=== PATIENT | female | born 1985 | race Caucasian/White ===

== ENCOUNTER 2017-12-14 10:43 | Emergency (ER) | payer OTHER ==
[2017-12-14 11:04] VITALS: BP 98/66
--- NOTE | 2017-12-14 11:30 | UC ---
Dental HPI - HPI Summary HPI Summary: This is zahraa Silverio documenting for attending Eros Casey MD. This patient is a 32 year old F presenting to [facility] with a chief complaint of facial abscess in the right lower jaw that began this morning. Pt has had all her teeth pulled except for one in the back right lower jaw that is broken and the dentures are irritating. Pt has taken ibuprofen with relief. The patient rates the pain 5/10 in severity. Patient reports dental pain. Patient denies fever. - History of Current Complaint Chief Complaint: UCDentalProblem Stated Complaint: DENTAL PAIN Time Seen by Provider: 12/14/17 11:20 Hx Obtained From: Patient Hx Last Menstrual Period: depo Onset/Duration: Lasting Hours, Still Present Severity: Moderate Pain Intensity: 5 Pain Scale Used: 0-10 Numeric Alleviating Factor(s): OTC Meds Related History: Previous Dental Care on Same Tooth - Allergies/Home Medications Allergies/Adverse Reactions: Allergies Allergy/AdvReac Type Severity Reaction Status Date / Time amoxicillin Allergy Hives Verified 12/14/17 11:04 PMH/Surg Hx/FS Hx/Imm Hx Cardiovascular History: Cardiac Disease - murmur Other History Of: Negative For: Anticoagulant Therapy - Surgical History Surgical History: Yes Surgery Procedure, Year, and Place: Tonsillectomy - Family History Known Family History: Positive: Hypertension Negative: Seizure Disorder - Social History Alcohol Use: None Substance Use Type: None Smoking Status (MU): Current Every Day Smoker Amount Used/How Often: ppd - Immunization History Most Recent Influenza Vaccination: never Most Recent Tetanus Shot: up to date Review of Systems Constitutional: Negative - fever Skin: Other - facial abscess ENT: Dental Pain All Other Systems Reviewed And Are Negative: Yes Physical Exam - Summary Physical Exam Summary: General: well-appearing, no pain distress Skin: warm, color reflects adequate perfusion, dry Head: normal Eyes: EOMI, GUS ENT: Severe dental decay in the right lower molars with gingival swelling Neck: supple, nontender Respiratory: CTA, breath sounds present Cardiovascular: RRR Abdomen: soft, nontender Bowel: present Musculoskeletal: normal, strength/ROM intact Neurological: sensory/motor intact, A&O x3 Psychological: affect/mood appropriate Triage Information Reviewed: Yes Vital Signs: Initial Vital Signs Temp 97.6 F 12/14/17 11:01 Pulse 83 12/14/17 11:01 Resp 16 12/14/17 11:01 BP 98/66 12/14/17 11:01 Pulse Ox 98 12/14/17 11:01 Vital Signs Reviewed: Yes Dental Complaint Course/Dx - Differential Dx/Diagnosis Provider Diagnoses: DENTAL PAIN Discharge - Sign-Out/Discharge Documenting (check all that apply): Patient Departure - Discharge Plan Condition: Stable Disposition: HOME Prescriptions: Clindamycin Cap(NF) [Clindamycin Cap 300 mg Cap(NF)] 300 mg PO Q6H #40 cap Patient Education Materials: Toothache (ED) Referrals: Refugio Bustillos MD [Primary Care Provider] - Additional Instructions: FOLLOW UP WITH YOUR DENTIST. GET RECHECKED FOR ANY WORSENING OF YOUR CONDITION OR QUESTIONS OR CONCERNS. - Billing Disposition and Condition Condition: STABLE Disposition: Home Attestation Statement Scribe Attestation: This is zahraa Silverio documenting for attending Eros Casey MD. User Type: Provider with Scribe Provider Attestation: The documentation recorded by the scribe accurately reflects the service I personally performed and the decisions made by me.
== END 2017-12-14 11:40 | disposition home or self-care (01) ==
LOC: UCEAST 10:43
DX: K08.89 Other specified disorders of teeth and supporting structures (principal); Z88.0 Allergy status to penicillin; F17.210 Nicotine dependence, cigarettes, uncomplicated
CPT/HCPCS: 99212; G0463

== ENCOUNTER 2018-08-10 09:57 | Emergency (ER) | payer OTHER ==
--- OUTSIDE RECORDS SUMMARY | 2018-08-10 10:03 | XMS REPORT | Continuity of Care Document ---
:1985 Author Organization [facility] Address [address], [place] [id number] Phone Care Team Providers Name Role Phone Coral Higuera NP Unavailable Unavailable Allergies, Adverse Reactions, Alerts Substance Reaction Status AMOXICILLIN TRIHYDRATE Hives/Skin Rash Active Medications Medication Instructions Dosage Effective Dates Status Comments (start - stop) Depo-Provera 150 mg/mL IM Q 11-13 weeks - Active intramuscular suspension Problems Condition Effective Dates (start - Clinical Status Comments stop) Body mass index (BMI) 32.0-32.9, - adult Encounter for surveillance of injectable contraceptive Human immunodeficiency virus [HIV] - counseling Encounter for surveillance of injectable contraceptive Encounter for test, result negative Human immunodeficiency virus [HIV] - counseling Encounter for surveillance of injectable contraceptive Encounter for test, result negative Human immunodeficiency virus [HIV] - counseling Encounter for surveillance of injectable contraceptive Encounter for surveillance of injectable contraceptive Encounter for surveillance of injectable contraceptive Encounter for surveillance of injectable contraceptive Encounter for test, result negative Encounter for surveillance of injectable contraceptive Encounter for surveillance of injectable contraceptive Encounter for surveillance of other contraceptives Encounter for surveillance of injectable contraceptive Encounter for surveillance of injectable contraceptive BCM Other, Surveillance BCM Other, Surveillance BCM Other, Surveillance BCM Other, Surveillance BCM Other, Surveillance Procedures Procedure Date INJECTION OR LAB ONLY VISIT EST INJECTION DEPO/CEFTRIAXONE PREVENTIVE COUNSELING, Under 8 Minutes DEPO Results Test Name Date and Time Measure Units Reference Range Abnormal Flag Status Comments No information Advance Directives Directive Yes / No Effective Date File Name No information Encounters Encounter Practice Location Reason(s) Diagnoses Date Provider Providers Description For Visit Copied on Encounter [facility] Encounter for Kalen [facility] [place] surveillance of Coral. 620 Provider: Southern injectable [address], [place] Finger contraceptiveHum [place], [place], Kalen J, [facility], [address] [place] [id number], [place]. [address] immunodeficiency tel:[phone] [address], St, [place], virus [HIV] [address] [place], [place], [address]. [id number], tel:[phone] [place] [phone] tel:[phone] [facility] Encounter for Kalen [facility] [place] [facility] surveillance of Coral. 620 Provider: Southern injectable [address], Coral Finger contraceptiveEnc [place], [place], Kalen J, [facility], [address] [place] [address], [place]. [address] test, tel:[phone] [address], St, [place], result [address] [place], [place], [place], [address]. [id number], immunodeficiency tel:[phone] [place] virus [HIV] [id number] tel:[phone] counseling sulting [phone] Provider: [facility]URSE [facility] Encounter for Sep-0 [place] Referring Parenthood [place] [facility] surveillance of Alanna. [address] W Provider: Southern injectable [address], Alanna Finger contraceptiveEnc [place], [place], Kornblum [facility], [address] [place] [address]. M, [address] test, tel:[phone] [address], St, [place], result negative [address] [place], [place], [address]. [id number], tel:[phone] [place] [phone] tel:[phone] sulting [phone] Provider: [facility]SE [place] [facility] Human Aug-2 White Kristan. [facility] [address] Provider: Southern virus [HIV] [address] St, [place], [place], [address], White, [address], [address] for [place]. [address] [place] surveillance of St, St, [place], injectable [place], [place], [place], [address]. [id number], [place] tel:[phone] [facility] Encounter for Francia Rushing. Referring Parenthood [place] [facility] surveillance of [address] Provider: Southern injectable [address], [place], [place], [address], [place], [address], [address] [place], St, [place], [place], [place], [id number], [address].Cons [place] ulting tel:[phone] Provider: [id number] [facility] Encounter for Francia Rushing. Referring Parenthood [place] [facility] [place] surveillance of [address] Provider: Southern injectable [address], [place], [place], [address], [place], [address], [address] [place]. [address], St, [place], [place], [place], [id number], [address].Cons [place] ulting tel:[phone] Provider: [id number] [facility] Encounter for Terryidis Referring Parenthood [place] [facility] [place] surveillance of Fay. [address] W Provider: Southern injectable [address], Sole Finger contraceptiveEnc [place], [place], Tim Bob, 620 [place] [address]. [address] test, tel:[phone], St, [place], result negative [address] [place], [place], [address]. [id number], tel:[phone] [place] [phone] tel:[phone] sulting [phone] Provider: [facility]SE [facility]. [facility] [address] Provider: Southern injectable [address], [place], [place], [address], Kimberly RTim, 620 y mass index [place]. [address] (BMI) 32.0-32.9, [address], St, [place], adult [place], [place], [address]. [id number], tel:[phone] tel:[phone] [facility] Encounter for Francia Rushing. [facility] of [address] Provider: Southern injectable [address] St, [place], [place], [address], Tim Bob, 620 [place]. [address], St, [place], [place], [place], [address]. [id number], tel:[phone] [place] [phone] tel:[phone] sulting [phone] Provider: [facility]URSE [facility] Encounter for Francia Rushing. [facility] of [address] Provider: Southern other [address] St, [place], [place], [address], Tim Bob, 620 [place]. [address], St, [place], [place], [place], [address]. [id number], tel:[phone] [place] [phone] tel:[phone] sulting [phone] Provider: [facility]URSE [facility] Encounter for [place]arete [facility] . [address] W Provider: Southern injectable [address], Sole Finger contraceptive [place], [place], [place], 620 [address]. [address] tel:[phone] [address], St, [place], [address] [place], [place], [address]. [id number], tel:[phone] [place] [phone] tel:[phone] sulting [phone] Provider: [facility]URSE [facility] Encounter for [place] [facility] of Gio. 620 Provider: Southern injectable [address], Gio Finger contraceptive [place], [place], [place], [facility], 620 [address]. [address] tel:[phone], St, [place], [address] [place], [place], [address]. [id number], tel:[phone] [place] [phone] tel:[phone] [facility] BCM Other, Sep-2 [place]te [facility] Surve[facility] 4 Tamanna. 620 W Provider: Southern [address], Tamanna Finger [place], [place], [place], [facility], 620 [address]. [address] tel:[phone], , [place], [address] [place], [place], [address]. [id number], tel:[phone] [place] [phone] tel:[phone] sulting [phone] Provider: NURSE [facility] BCM Other, [place] [facility] Surveillance 7 Asha. 620 W Provider: Southern [address], Asha Finger [place], [place], [place], [facility], 620 [address]. [address] tel:[phone], , [place], [address] [place], [place], [address]. [id number], tel:[phone] [place] [phone] tel:[phone] sulting [phone] Provider: NURSE [facility] BCM Other, [facility] Surveillance 6 [facility] Sueane. Provider: Southern [address] Sueane Finger , [place], [facility], [address] [place], [address]. emmer, [address] tel:[phone], [place], [address] [address], [place], [place], [id number], [place], [address]. [place] tel:[phone] tel:[phone] [phone] sulting Provider: NURSE [facility] BCM Other, [place] [facility] Surve[facility] 8 Asha. 620 W Provider: Southern [address], Asha Finger [place], [place], [facility], [facility], 620 [address]. [address] tel:[phone], , [place], [address] [place], [place], [address]. [id number], tel:[phone] [place] [phone] tel:[phone] sulting [phone] Provider: NURSE [place] [facility] [place] Fay. [address] Southern [address], Finger [place], [place], [facility], [facility] [address]. [address] tel:[phone] , [place], [address] [place], [id number], tel:[phone] [facility] BCM Other, [facility] Referring Parenthood [place] [facility] Surveillance Tamanna. 620 W Provider: [place] [address], Tamanna [place]inger [place], [place], [facility], 620 [address]. [address] tel:[phone], St, [place], [address] [place], [place], [address]. [id number], tel:[phone] [place] [phone] tel:[phone] Family History Family Member Diagnosis Age At Onset Maternal grandmother Cancer, ovarian 1st degree relative No hx of venous thromboembolism Family history of No family history of Stroke Paternal grandfather Cardiovascular disease Maternal grandmother Cancer, colon Maternal grandfather Cardiovascular disease Mother Alive and well No family history of Myocardial infarction Mother Lupus erythematosus Father Alive and well 1st degree relative No hx of coronary heart disease (female <65, male <55) 1st degree relative No hx of cancer of breast, colon, endometrium or ovary Immunizations Vaccine Date Status Comments Hep A and Hep B administered Note: pt hx ; Source: Source Unspecified HPV (quadrivalent) administered Note: pt hx ; Source: Source Unspecified Payers Payer name Insurance type Covered democrat ID Authorization(s) [facility] [id number] Social History Type Description Quantity Date Captured Comments Alcohol Use Details Unknown Caffeine Use Unknown Details Tobacco Use Status Light cigarette smoker (1-9 cigs/day) Smoking Status Light tobacco smoker Smoking Tobacco Use Cigarette: Years Used 14 Cigarette: 8 Cigarettes per day , Pack Year: 5.6 Details Sex Female Vital Signs Date / Height Weight BMI Pulse Blood Temperature Respiratory Body Head BMI Pulse Inhaled Time: Rate Pressure Rate Surface Circumference percentile Ox Ox Area No information Chief Complaint And Reason For Visit No information Reason For Referral Reason For Referral No information Plan Of Treatment Date Type Action Status Goal Tobacco cessation counseling completed History Of Present Illness Encounter Date Complaint History Of Present Illness No information Functional Status Date Functional Assessment No information Medications Administered Medication Instructions Dosage Effective Dates (start - stop) Status Comments No information Instructions Date Instruction Additional Information Weight loss from baseline weight Related to Body mass index (BMI) 32.0-32.9, adult Assessments Type Assessment Date assessment Encounter for surveillance of injectable contraceptive assessment Human immunodeficiency virus [HIV] counseling Goals Health Concern Goal Type Priority Status Date No information Medical Equipment Description Device [place] Device Identifier Effective Dates (start - stop ) Status No information Mental Status Date Cognitive Assessment No information Health Concerns Observation Date No information Concern Status Date No information
[2018-08-10 10:07] VITALS: BP 108/53
--- NOTE | 2018-08-10 10:08 | UC ---
Lower Extremity/Ankle HPI - HPI Summary HPI Summary: 32 yo female presents with LEFT ankle injury. 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 Inverted her left ankle. She was able to get to her feet, but has significant pain with weight bearing. Swelling began soon after. She has not taken anything OTC for her discomfort. Came directly to . Denies numbness or tingling. She did have a fracture of her left tibia when she was 15 yo that healed improperly - per pt. - History of Current Complaint Chief Complaint: UCLowerExtremity Stated Complaint: ANKLE INJURY Time Seen by Provider: 08/10/18 10:08 Hx Obtained From: Patient Hx Last Menstrual Period: depo Onset/Duration: Sudden Onset Severity Initially: Moderate Severity Currently: Moderate Pain Intensity: 7 Pain Scale Used: 0-10 Numeric Aggravating Factor(s): Standing, Ambulation Alleviating Factor(s): Rest, Elevation Able to Bear Weight: Yes - Allergies/Home Medications Allergies/Adverse Reactions: Allergies Allergy/AdvReac Type Severity Reaction Status Date / Time amoxicillin Allergy Hives Verified 08/10/18 10:07 PMH/Surg Hx/FS Hx/Imm Hx - Additional Past Medical History Additional PMH: None Other History Of: Negative For: Anticoagulant Therapy - Surgical History Surgical History: Yes Surgery Procedure, Year, and Place: Tonsillectomy - Family History Known Family History: Positive: Hypertension Negative: Seizure Disorder - Social History Occupation: Employed Full-time Lives: With Family Alcohol Use: None Substance Use Type: None Smoking Status (MU): Current Every Day Smoker Amount Used/How Often: ppd - Immunization History Most Recent Influenza Vaccination: never Most Recent Tetanus Shot: up to date Review of Systems All Other Systems Reviewed And Are Negative: Yes Constitutional: Positive: Negative Skin: Positive: Negative Respiratory: Positive: Negative Cardiovascular: Positive: Negative Gastrointestinal: Positive: Negative Neurovascular: Positive: Negative Musculoskeletal: Positive: Other: - Left ankle pain and swelling Neurological: Positive: Negative Psychological: Positive: Negative Physical Exam - Summary Physical Exam Summary: GENERAL: NAD. WDWN. No pain distress. SKIN: No rashes, sores, lesions, or open wounds. CHEST: No accessory muscle use. Breathing comfortably and in no distress. CV: Pulses intact PT and DP. Cap refill <2seconds MSK: LEFT ANKLE: Moderate edema at lateral malleolus. TTP at posterior lateral malleolus. FROM, but pain with inversion. Strength 5/5. Negative talar tilt. No increased laxity. NEURO: Alert. Sensations intact and symmetric B/L LEs PSYCH: Age appropriate behavior. Triage Information Reviewed: Yes Vital Signs: Initial Vital Signs Temp 98 F 08/10/18 10:04 Pulse 86 08/10/18 10:04 Resp 16 08/10/18 10:04 BP 108/53 08/10/18 10:04 Pulse Ox 100 08/10/18 10:04 Vital Signs Reviewed: Yes Lower Extremity Course/Dx - Course Course Of Treatment: XR: IMPRESSION: Soft tissue swelling laterally. Healing fracture distal tibia. Suspect ankle sprain. Advised to RICE and take tylenol/ibuprofen for discomfort. She was placed in an JOSHUA wrap, gel splint, and given crutches for ambulation. Advised to f/u with Ortho if symptoms do not improve in the next 7- 10 days - Differential Dx/Diagnosis Provider Diagnosis: Ankle sprain Discharge - Sign-Out/Discharge Documenting (check all that apply): Patient Departure All imaging exams completed and their final reports reviewed: Yes - Discharge Plan Condition: Stable Disposition: HOME Patient Education Materials: Ankle Sprain (ED) Forms: *Work Release Referrals: Refugio Bustillos MD [Primary Care Provider] - Additional Instructions: If you develop a fever, shortness of breath, chest pain, new or worsening symptoms - please call your PCP or go to the ED. 1) Rest, Ice, and elevate your ankle as much as possible 2) Use the JOSHUA wrap, splint, and crutches as needed for comfort 3) May take tylenol/ibuprofen for discomfort as directed 4) If your symptoms do not improve within 7-10 days, please call Orthopedics at the number below to schedule an appointment for a recheck - Billing Disposition and Condition Condition: STABLE Disposition: Home
== END 2018-08-10 11:23 | disposition home or self-care (01) ==
LOC: UCEAST 09:57
DX: S93.402A Sprain of unspecified ligament of left ankle, initial encounter (principal); F17.210 Nicotine dependence, cigarettes, uncomplicated; W01.0XXA Fall on same level from slipping, tripping and stumbling without subsequent striking against object, initial encounter; Y93.01 Activity, walking, marching and hiking; Y92.511 Restaurant or cafe as the place of occurrence of the external cause; Z88.1 Allergy status to other antibiotic agents
CPT/HCPCS: 99213; G0463

== ENCOUNTER 2019-02-16 13:53 | Emergency (ER) | payer OTHER ==
[2019-02-16 14:03] VITALS: BP 108/70
[2019-02-16] MEDS ORDERED: Lidocaine 1% MPF ** 5 ML VIAL INJ ONE (14:34)
--- NOTE | 2019-02-16 15:00 | UC ---
Skin Complaint HPI - HPI Summary HPI Summary: Pt presents with c/o tender, firm "bump" that began ~ 2 days ago on right inner butt cheek. Pt denies fever, chills or drainage. - History of Current Complaint Chief Complaint: UCSkin Time Seen by Provider: 02/16/19 14:34 Stated Complaint: SORE BETWEEN BUTT CHEEKS Hx Obtained From: Patient Hx Last Menstrual Period: depo ?: No Onset/Duration: Gradual Onset, Lasting Days, Still Present, Worse Since - onset Skin Exposure Onset/Duration: Days Ago Timing: Constant Onset Severity: Mild Current Severity: Moderate Pain Intensity: 8 Location: Discrete Character: Redness, Raised, Painful Aggravating Factor(s): Touch Alleviating Factor(s): Nothing Associated Signs & Symptoms: Positive: Tenderness - Allergy/Home Medications Allergies/Adverse Reactions: Allergies Allergy/AdvReac Type Severity Reaction Status Date / Time amoxicillin Allergy Hives Verified 02/16/19 14:03 PMH/Surg Hx/FS Hx/Imm Hx Previously Healthy: Yes Other History Of: Negative For: Anticoagulant Therapy - Surgical History Surgical History: Yes Surgery Procedure, Year, and Place: Tonsillectomy - Family History Known Family History: Positive: Hypertension Negative: Seizure Disorder - Social History Occupation: Employed Full-time Lives: With Family Alcohol Use: None Substance Use Type: None Smoking Status (MU): Current Every Day Smoker Amount Used/How Often: ppd Have You Smoked in the Last Year: Yes - marijuana - Immunization History Most Recent Influenza Vaccination: never Most Recent Tetanus Shot: up to date Vaccination Up to Date: Yes Review of Systems All Other Systems Reviewed And Are Negative: Yes Constitutional: Positive: Negative Skin: Positive: Other - tender mass right inner butt cheek. Eyes: Positive: Negative ENT: Positive: Negative Respiratory: Positive: Negative Cardiovascular: Positive: Negative Gastrointestinal: Positive: Negative Genitourinary: Positive: Negative Motor: Positive: Negative Neurovascular: Positive: Negative Musculoskeletal: Positive: Negative Neurological: Positive: Negative Psychological: Positive: Negative Is Patient Immunocompromised?: No Physical Exam Triage Information Reviewed: Yes Appearance: Well-Appearing Vital Signs: Initial Vital Signs Temp 97.9 F 02/16/19 13:57 Pulse 100 02/16/19 13:57 Resp 16 02/16/19 13:57 BP 108/70 02/16/19 13:57 Pulse Ox 98 02/16/19 13:57 Vital Signs Reviewed: Yes Eye Exam: Normal ENT: Positive: Hearing grossly normal Dental Exam: Normal Neck exam: Normal Respiratory: Positive: No respiratory distress Musculoskeletal Exam: Normal Neurological Exam: Normal Psychological Exam: Normal Skin Exam: Other - tender firm flucuant mass/abscess right inner butt cheek Procedures - Incision and Drainage Right Medial Buttocks Site: right inner buttock Anesthesia: Local, Lidocaine Instrument(s): Scalpel Course/Dx - Course Course Of Treatment: Incision and drainage or abscess right inner buttock. Pt tolerated procedure well. - Differential Diagnoses - Skin Complaint Differential Diagnoses: Abscess, MRSA - Diagnoses Provider Diagnosis: Abscess of right buttock Discharge ED - Sign-Out/Discharge Documenting (check all that apply): Patient Departure All imaging exams completed and their final reports reviewed: No Studies - Discharge Plan Condition: Stable Disposition: HOME Prescriptions: DOXYcycline CAP(*) [DOXYcycline 100MG CAP(*)] 100 mg PO Q12H #20 cap Patient Education Materials: Abscess (ED) Referrals: Refugio Bustillos MD [Primary Care Provider] - 02/19/19 - Billing Disposition and Condition Condition: STABLE Disposition: Home
== END 2019-02-16 15:26 | disposition home or self-care (01) ==
LOC: UCEAST 13:53
DX: L02.31 Cutaneous abscess of buttock (principal); Z88.0 Allergy status to penicillin; F17.200 Nicotine dependence, unspecified, uncomplicated
CPT/HCPCS: 10060; 87070; 87077; 87186; 87205; 87640; 87641; 99212; G0463